=== PATIENT | male | born 1990 | race Caucasian/White ===

== ENCOUNTER 2024-02-19 02:22 | Emergency (ER) | payer OTHER, SELFPAY ==
--- NOTE | ~2024-02-19 | XR_ITS ---
Portable chest x-ray Comparison: 03/26/2018 Clinical History: Chest pain Findings: Minimal interstitial prominence lung bases noted. No pleural effusion or pneumothorax. Ca rdiomediastinal silhouette is stable. Bones and soft tissues are unremarkable. Impression: Mild bibasilar hypoventilatory change versus minimal interstitial edema. Atypical infection possibly less likely. Reviewed, dictated and finalized at location . Impression: Mild bibasilar hypoventilatory change versus minimal interstitial edema. Atypic al infection possibly less likely.
[2024-02-19 02:28] VITALS: BP 163/89; PULSE 120; RESP 17; O2SAT 100
[2024-02-19 02:41] VITALS: O2SAT 100
[2024-02-19 02:51] LABS: Basophils Absolute Auto 0.1 K/mm3 (0.0-0.1); Basophils Percent Auto 0.7 % (0.2-1.2); Eosinophils Absolute Auto 0.2 K/mm3 (0-0.3); Hemoglobin 16.9 g/dL (14.0-18.0); Immature Granulocyte Absolute 0.04 K/mm3 (0.00-0.031); Immature Granulocyte Percent A 0.3 % (0-0.5); Lymphocytes Absolute Auto 2.93 K/mm3 (0.9-3.2); Lymphocytes Percent Auto 25.4 % (18.3-44.2); Mean Corpuscular HGB Conc 33.8 g/dl (32-36); Mean Corpuscular Hemoglobin 29.3 pg (26-34); Mean Corpuscular Volume 86.8 fl (80-100); Mean Platelet Volume 10.1 fl (7.4-10.4); Monocytes Absolute Auto 0.9 K/mm3 (0.1-0.6); Monocytes Percent Auto 8.1 % (2.6-8.5); Neutrophils Absolute Auto 7.3 K/mm3 (1.3-6.7); Neutrophils Percent Auto 63.5 % (45.5-73.1); Platelet Count Result 349 k/mm3 (150-375); Red Blood Count 5.76 M/mm3 (4.6-6.20); Red Cell Distribution Width 12.5 % (11.5-14.5); White Blood Count 11.5 K/mm3 (4.5-10.0)
[2024-02-19 02:55] LABS: Alanine Aminotransferase 55 U/L (6-50); Albumin Level 5.2 g/dL (3.5-5.1); Alkaline Phosphatase 69 U/L (38-126); Anion Gap 10 mmol/L (4-12); Aspartate Amino Transferase 38 U/L (17-59); Bilirubin,Total 0.8 mg/dL (0.2-1.3); Blood Urea Nitrogen 19 mg/dL (9-20); Calcium 9.2 mg/dL (8.4-10.2); Carbon Dioxide 27 mmol/L (22-30); Chloride 101 mmol/L (98-107); Estimated CRCL calculation 134 ml/min; Estimated Glomerular Filt Rate > 60; Glucose 114 mg/dL (65-110); Lipase 93 U/L (23-300); Magnesium 2.2 mg/dL (1.6-2.3); Potassium 3.5 mmol/L (3.4-5.0); Sodium 138 mmol/L (137-145)
[2024-02-19 03:06] LABS: D Dimer 0.47 ug/mL (<0.48)
[2024-02-19] MEDS: SODIUM CHLORIDE 0.9% IV 1,000 ML 999 ML IV CONT (03:06)
[2024-02-19 03:11] VITALS: BP 143/98; PULSE 109; RESP 23; O2SAT 98
[2024-02-19 03:21] LABS: Influenza A QL RT-PCR Negative (Negative); Influenza B QL RT-PCR Negative (Negative); RSV RNA, RT-PCR Negative (Negative); SARS-CoV-2 RNA PCR Negative (Negative)
--- NOTE | 2024-02-19 03:33 | ED.CHESTPAIN ---
HPI - Chest Pain General Chief Complaint: Chest Pain Stated Complaint: chest pain Time Seen by Provider: 02/19/24 02:35 History of Present Illness HPI narrative: Patient is a 33-year-old male who presents to the emergency department this morning complaining of chest pain that has been ongoing for the past few days. Patient states that he was lifting some heavy weights, doing a bench press of 300 lb and ended up having to rest the weight on his chest. Patient states that the weight did not fall in his chest that he slowly lowered to his chest. Patient states that he feels that since then his chest has been bruised and believes that that is the cause for his chest pain but decided to come in today for further evaluation because his father did of a heart attack at age 50. Pain is positional with certain movements, and is not present when patient is resting comfortably. Patient admits that he has not seen a family doctor in a while and has been getting set up with her doctor. Patient also states that he has noticed that his blood pressure has been ranging anywhere from 130-150 systolic which is higher than his usual blood pressure and agrees that he needs to follow up with the primary care physician to have this checked out. Patient states that he has a cruise scheduled 2 weeks from now and wanted to make sure that the chest pain he is having is not from his heart prior to the screws. He denies any additional symptoms including any shortness of, nausea or vomiting. Patient admits to mild epigastric pain but also states that he has a history of acid reflux and is unsure if that is related to his chest pain. He denies fevers or chills at home. No additional symptoms or concerns at this time. Related Data Allergies Allergy/AdvReac Type Severity Reaction Status Date / Time No Known Allergies Allergy Unverified 11/26/18 22:09 Review of Systems Review of Systems: All systems are reviewed and are negative unless stated otherwise in the HPI. Exam Narrative: General: Alert, awake, afebrile, in no acute distress. HEENT: PERRL, no rhinorrhea, no post nasal drip, oropharynx clear. Cardiovascular: Tachycardic with regular rhythm, no murmurs, rubs or gallops, no peripheral edema. Respiratory: Clear to auscultation bilaterally, no tachypnea, no wheezing, no rhonchi, no rubs, no respiratory distress. Abdomen: Soft, nontender, nondistended, no rebound, no guarding, no peritoneal signs. Musculoskeletal: No joint swelling or deformity, normal muscle tone. Skin: No rashes or petechia, no signs of infection. Neurological: Alert and oriented to person, place, and time. Follows all commands. No focal deficits, speech is clear and fluent. Course Vital Signs Vital signs: Vital Signs Pulse Rate 120 H 02/19/24 02:28 Respiratory Rate 17 02/19/24 02:28 Blood Pressure 163/89 H 02/19/24 02:28 Pulse Oximetry 100 02/19/24 02:28 Oxygen Delivery Room Air 02/19/24 02:28 Pulse Rate 109 H 02/19/24 03:11 Respiratory Rate 23 H 02/19/24 03:11 Blood Pressure 143/98 H 02/19/24 03:11 Pulse Oximetry 98 02/19/24 03:11 Oxygen Delivery Room Air 02/19/24 02:41 MDM - Chest Pain MDM Narrative Medical decision making narrative: The patient was evaluated by myself in the emergency department. History is obtained from patient who is an independent historian and physical exam was performed. External medical records were reviewed at this time. IV was established and pertinent tests were ordered. Patient's heart rate was noted to be tachycardic ranging anywhere from 100-120. Patient admits that his resting heart rate is usually around 90 and when he is walking around the hospital it is usually around 110. Patient was administered a 1 L IV fluid bolus with normal saline. EKG was obtained which revealed sinus tachycardia rate of 122 beats per minute. No ST changes, T wave inversions or evidence of acute ischemia. EKG was independ
[2024-02-19 03:38] LABS: Troponin I < 0.012 ng/mL (0.000-0.034)
--- NOTE | 2024-02-19 13:31 | ECG_ITS ---
[facility] [address] Test Date: 2024-02-19 Pat Name: Brian Ziegler Department: Room: Gender: M Molding Manager: : 1990 Requested By: Maria Alejandra Freeman Order Number: [id number] Reading MD: Savita Iqbal M.D. Measurements Intervals [place] Rate: 122 P: 53 MN: 165 QRS: 44 QRSD: 101 T: 38 QT: 326 QTc: 466 Interpretive Statements SINUS TACHYCARDIA NONSPECIFIC ST & T-WAVE ABNORMALITY No previous ECG available for comparison Electronically Signed On 02-19-2024 14:01:50 CDT by Savita Iqbal M.D.
== END 2024-02-19 04:10 | disposition home or self-care (01) ==
PROVIDERS: Emergency Provider Emergency Medicine; PCP Emergency Medicine
DX: R07.89 Other chest pain (principal); Z20.822 Contact with and (suspected) exposure to COVID-19
CPT/HCPCS: 36415; 71045; 80053; 83690; 83735; 84484; 85025; 85380; 87637; 93005; 96360; 99284; J7030

== ENCOUNTER 2024-03-30 12:25 | Emergency (ER) | payer OTHER, SELFPAY ==
[2024-03-30] VITALS (8 sets, daily range): BP systolic 139–170; BP diastolic 88–129; PULSE 91–126; RESP 16–22; TEMP 36.7; O2SAT 18–100
--- NOTE | ~2024-03-30 | XR_ITS ---
Clinical Indication: Chest pain PA and lateral views of the chest: Comparison: 02/19/2024 Findings: Questionable minimal bibasilar interstitial prominence. No consolidation or pleural effusio n. Cardiomediastinal silhouette is within normal limits. Bones and soft tissues are unremarkable. Impression: Questionable minimal bibasilar interstitial prominence, nonspecific. Reviewed, dictated and finalized at location . Impression: Questionable minimal bibasilar interstitial prominence, nonspecific.
--- NOTE | ~2024-03-30 | CT_ITS ---
EXAMINATION: CTA chest PE protocol DATE: 03/30/2024 15:06 INDICATION: Chest pain and shortness of breath TECHNIQUE: Computed tomography (CT) pulmonary angiogram of the chest was performed with 100 mL Omnipa que-350 intravenous contrast. Additional 3D reconstructions utilizing coronal maximum intensity proje ction (MIP) were performed. Automated exposure control and iterative reconstruction technique were em ployed. The dose-length product was 2407.48 mGy-cm. COMPARISON: None FINDINGS: No pulmonary embolism. No pneumonia, pulmonary edema, pleural effusion or pneumothorax. Heart size is normal. No pericardial effusion. Thoracic aorta is normal in caliber with no dissection. No patholog ically enlarged thoracic lymphadenopathy. Diffuse hepatic steatosis. Mild lower thoracic dextrocurvat ure with mild to moderate spondylosis. Chronic mild anterior wedging at T8, T10 and T11. IMPRESSION: 1. No pulmonary embolism or other acute cardiopulmonary disease. 2. Diffuse hepatic steatosis. Reviewed, dictated and finalized at location A.
--- NOTE | 2024-03-30 12:25 | ECG_ITS ---
Test Date: 2024-03-30 12:34:30 Measurements Intervals [place] Rate: 97 P: 30 NM: 130 QRS: 30 QRSD: 106 T: 17 QT: 317 QTc: 404 Interpretive Statements SINUS RHYTHM BASELINE WANDER- V4-V6 NORMAL ECG Compared to ECG 02/19/2024 02:33:26 HEART RATE HAS DECREASED Electronically Signed On 03-30-2024 17:46:12 CDT by Aries Richey D.O.
--- NOTE | 2024-03-30 12:36 | ED.CHESTPAIN ---
HPI - Chest Pain General Chief Complaint: Chest Pain <Latonia Danielle PA-C - Last Filed: 03/30/24 18:20> Stated Complaint: cp <Latonia Danielle PA-C - Last Filed: 03/30/24 18:20> Time Seen by Provider: 03/30/24 12:36 <Latonia Danielle PA-C - Last Filed: 03/30/24 18:20> Focused HPI: This is a 33 year old male that presents to the ER for chest pain. Ongoing since this morning. Reports substernal dull chest pain. Intermittent in nature. Reports recently recovering from COVID. Denies shortness of breath or lower extremity edema. GENERAL: Diaphoretic, well-nourished, and in no acute distress. HEAD: Normocephalic, atraumatic. CHEST: Clear to auscultation. ?No respiratory distress. HEART: Regular rate and rhythm.? NEURO: ?Alert and oriented x3. Patient screened in triage and initial orders placed.? ?Additional care and disposition to be based upon?diagnostic testing and treatment. <Latonia Danielle PA-C - Last Filed: 03/30/24 18:20> History of Present Illness HPI narrative: Patient with recent foreign travel. No hemoptysis. Persistent tachycardia upon arrival. Lysed with HPI. <Riley Chino MD - Last Filed: 03/30/24 16:45> Related Data Allergies/Adverse Reactions: Allergies Allergy/AdvReac Type Severity Reaction Status Date / Time No Known Allergies Allergy Verified 03/30/24 12:32 <Latonia Danielle PA-C - Last Filed: 03/30/24 18:20> Review of Systems Review of Systems: All systems reviewed & are unremarkable except as noted in HPI and below <Riley Chino MD - Last Filed: 03/30/24 16:45> Constitutional: Constitutional: Reports no additional constitutional complaints <Riley Chino MD - Last Filed: 03/30/24 16:45> ENT: Reports system reviewed and no additional complaints, except as documented <Riley Chino MD - Last Filed: 03/30/24 16:45> Cardiovascular: Cardiovascular: Reports chest pain, Denies rapid heart rate and Denies radiating jaw, neck or arm pain <Riley Chino MD - Last Filed: 03/30/24 16:45> Respiratory: Respiratory: Reports no additional respiratory complaints <Riley Chino MD - Last Filed: 03/30/24 16:45> Musculoskeletal: Musculoskeletal: Reports no additional musculoskeletal complaints <Riley Chino MD - Last Filed: 03/30/24 16:45> [facility] Past Medical History Medical History: Medical History (Updated 03/30/24 @ 16:45 by Riley Chino MD) Hypertension <Latonia Danielle PA-C - Last Filed: 03/30/24 18:20> Surgical History Surgical History: Surgical History (Updated 03/30/24 @ 16:43 by Riley Chino MD) No pertinent past surgical history <Latonia Danielle PA-C - Last Filed: 03/30/24 18:20> Exam Narrative: GENERAL: Well-appearing, morbidly obese, and in no acute distress. HEAD: Normocephalic, atraumatic. ENT: Mucous membranes moist. CHEST: Clear to auscultation. No respiratory distress. HEART: Tachycardic and regular. Normal peripheral pulses. EXTREMITIES: Normal range of motion. No edema. SKIN: Warm, dry, no rash. NEURO: Alert and oriented x3. PSYCH: Normal mood and affect. <Riley Chino MD - Last Filed: 03/30/24 16:45> Course Course Emergency Course: Patient resting comfortably. Informed of results. No PE. Troponin negative x2. Is going to establish care with PCP. <Riley Chino MD - Last Filed: 03/30/24 16:45> Vital Signs Vital signs: Vital Signs Temperature 98.1 F 03/30/24 12:27 Pulse Rate 126 H 03/30/24 12:27 Respiratory Rate 22 H 03/30/24 12:27 Blood Pressure 170/129 H 03/30/24 12:27 Pulse Oximetry 98 03/30/24 12:27 Oxygen Delivery Room Air 03/30/24 12:27 Temperature 98.1 F 03/30/24 12:27 Pulse Rate 96 03/30/24 17:14 Respiratory Rate 18 03/30/24 17:14 Blood Pressure 139/98 H 03/30/24 17:14 Pulse Oximetry 96 03/30/24 16:24 Oxygen Delivery Room Air 03/30/24 13:05 <Latonia Danielle PA-C - Last Filed:
[2024-03-30 12:47] LABS: Basophils Absolute Auto 0.1 K/mm3 (0.0-0.1); Basophils Percent Auto 0.9 % (0.2-1.2); Eosinophils Absolute Auto 0.3 K/mm3 (0-0.3); Eosinophils Percent Auto 2.9 % (0-4.4); Hemoglobin 16.6 g/dL (14.0-18.0); Immature Granulocyte Absolute 0.08 K/mm3 (0.00-0.031); Immature Granulocyte Percent A 0.9 % (0-0.5); Lymphocytes Absolute Auto 2.55 K/mm3 (0.9-3.2); Lymphocytes Percent Auto 27.5 % (18.3-44.2); Mean Corpuscular HGB Conc 34.6 g/dl (32-36); Mean Corpuscular Hemoglobin 30.5 pg (26-34); Mean Corpuscular Volume 88.2 fl (80-100); Monocytes Absolute Auto 0.8 K/mm3 (0.1-0.6); Monocytes Percent Auto 8.4 % (2.6-8.5); Neutrophils Absolute Auto 5.5 K/mm3 (1.3-6.7); Neutrophils Percent Auto 59.4 % (45.5-73.1); Platelet Count Result 334 k/mm3 (150-375); Red Blood Count 5.44 M/mm3 (4.6-6.20); Red Cell Distribution Width 12.8 % (11.5-14.5); White Blood Count 9.3 K/mm3 (4.5-10.0)
[2024-03-30 12:56] LABS: Alanine Aminotransferase 81 U/L (6-50); Albumin Level 4.9 g/dL (3.5-5.1); Alkaline Phosphatase 68 U/L (38-126); Anion Gap 12 mmol/L (4-12); Aspartate Amino Transferase 44 U/L (17-59); Bilirubin,Total 0.8 mg/dL (0.2-1.3); Blood Urea Nitrogen 17 mg/dL (9-20); Calcium 8.9 mg/dL (8.4-10.2); Carbon Dioxide 27 mmol/L (22-30); Chloride 99 mmol/L (98-107); Estimated CRCL calculation 146 ml/min; Estimated Glomerular Filt Rate > 60; Glucose 139 mg/dL (65-110); Lipase 71 U/L (23-300); Potassium 3.9 mmol/L (3.4-5.0); Sodium 138 mmol/L (137-145)
[2024-03-30 13:01] LABS: Prothrombin Time 13.7 Seconds (11.1-14.7)
[2024-03-30] MEDS: ASPIRIN 81 MG CHEWABLE TABLET 324 MG PO (13:04)
[2024-03-30 13:07] LABS: Troponin I < 0.012 ng/mL (0.000-0.034)
[2024-03-30 13:15] LABS: D Dimer 0.35 ug/mL (<0.48)
[2024-03-30] MEDS: KETOROLAC 30 MG/ML VIAL (*BKC) IV PUSH (14:47)
[2024-03-30] MEDS: SODIUM CHLORIDE 0.9% IV 1,000 ML 999 ML IV CONT (14:47)
--- NOTE | 2024-03-30 15:57 | ECG_ITS ---
Test Date: 2024-03-30 16:00:13 Measurements Intervals [place] Rate: 97 P: 37 GA: 153 QRS: 30 QRSD: 105 T: 9 QT: 329 QTc: 418 Interpretive Statements SINUS RHYTHM MINIMAL Q WAVES- INFERIOR LEADS BORDERLINE ECG Compared to ECG 03/30/2024 12:34:30 No significant changes Electronically Signed On 03-30-2024 17:47:48 CDT by Aries Richey D.O.
[2024-03-30 16:27] LABS: Troponin I < 0.012 ng/mL (0.000-0.034)
== END 2024-03-30 17:15 | disposition home or self-care (01) ==
PROVIDERS: Emergency Provider Emergency Medicine
DX: R07.89 Other chest pain (principal); I10 Essential (primary) hypertension; Z86.16 Personal history of COVID-19; K76.0 Fatty (change of) liver, not elsewhere classified
CPT/HCPCS: 36415; 71046; 71275; 80053; 83690; 84484; 85025; 85380; 85610; 85730; 93005; 96361; 96374; 99284; A9270; J1885; J7030; Q9967

== ENCOUNTER 2024-05-08 09:47 | Outpatient (CLI) | payer OTHER, SELFPAY ==
[2024-05-08 10:33] LABS: Basophils Absolute Auto 0.1 K/mm3 (0.0-0.1); Basophils Percent Auto 0.6 % (0.2-1.2); Eosinophils Absolute Auto 0.3 K/mm3 (0-0.3); Eosinophils Percent Auto 3.6 % (0-4.4); Hematocrit 46.9 % (42.0-52.0); Hemoglobin 15.5 g/dL (14.0-18.0); Immature Granulocyte Absolute 0.03 K/mm3 (0.00-0.031); Immature Granulocyte Percent A 0.3 % (0-0.5); Lymphocytes Absolute Auto 2.32 K/mm3 (0.9-3.2); Mean Corpuscular Hemoglobin 29.1 pg (26-34); Mean Corpuscular Volume 88.2 fl (80-100); Mean Platelet Volume 10.5 fl (7.4-10.4); Monocytes Absolute Auto 0.9 K/mm3 (0.1-0.6); Monocytes Percent Auto 10.1 % (2.6-8.5); Neutrophils Percent Auto 58.4 % (45.5-73.1); Platelet Count Result 302 k/mm3 (150-375); Red Blood Count 5.32 M/mm3 (4.6-6.20); Red Cell Distribution Width 12.4 % (11.5-14.5); White Blood Count 8.6 K/mm3 (4.5-10.0)
[2024-05-08 10:34] LABS: Hemoglobin A1C 5.7 % (<5.7)
[2024-05-08 10:39] LABS: Alanine Aminotransferase 100 U/L (6-50); Albumin Level 4.5 g/dL (3.5-5.1); Alkaline Phosphatase 64 U/L (38-126); Anion Gap 10 mmol/L (4-12); Aspartate Amino Transferase 51 U/L (17-59); Bilirubin,Total 1.1 mg/dL (0.2-1.3); Blood Urea Nitrogen 16 mg/dL (9-20); Calcium 8.9 mg/dL (8.4-10.2); Carbon Dioxide 28 mmol/L (22-30); Chloride 97 mmol/L (98-107); Cholesterol 185 mg/dL (0-200); Estimated Glomerular Filt Rate > 60; Glucose 107 mg/dL (65-110); HDL Direct 24 mg/dL; Potassium 3.8 mmol/L (3.4-5.0); Sodium 135 mmol/L (137-145); Triglycerides 108 mg/dL (<150)
[2024-05-08 10:50] LABS: LDL Cholesterol Direct 141 mg/dL
[2024-05-08 11:09] LABS: Prostate Specific Antigen 0.8 ng/mL (< OR = 4.0)
[2024-05-12 01:43] LABS: CRP, High Sensitivity 9.3 mg/L
[2024-05-12 20:53] LABS: Testosterone Free 270.5 pg/mL (46.0-224.0)
[2024-05-13 07:34] LABS: Testosterone Total 1018 ng/dL (250-1100)
== END 2024-05-08 09:48 | disposition home or self-care (01) ==
LOC: ANHLAB 09:49
PROVIDERS: PCP Nurse Practitioner Family; Visit Provider Nurse Practitioner Family
DX: Z00.00 Encounter for general adult medical examination without abnormal findings (principal); Z79.890 Hormone replacement therapy; Z76.89 Persons encountering health services in other specified circumstances; K76.0 Fatty (change of) liver, not elsewhere classified; R07.89 Other chest pain; I10 Essential (primary) hypertension; Z68.43 Body mass index [BMI] 50.0-59.9, adult; Z82.49 Family history of ischemic heart disease and other diseases of the circulatory system
CPT/HCPCS: 36415; 80053; 80061; 83036; 84153; 84402; 84403; 85025; 86141

== ENCOUNTER 2024-06-05 07:21 | Outpatient (CLI) | payer OTHER, SELFPAY ==
--- NOTE | ~2024-06-05 | CT_ITS ---
CT of the Abdomen and Pelvis: Indication: Abdominal pain Technique: 2.5 mm axial scans were obtained through the abdomen and pelvis following intravenous adm inistration of 100 cc of Omnipaque 350. Dose reduction technique was used on this scan by utilizing a utomated exposure control and iterative reconstruction technique. The dose-length product (DLP) was 2 093.38 mGy-cm. Findings: Scans through the lung bases are unremarkable. The liver, spleen, pancreas, gallbladder, adrenals and kidneys are within normal limits. No evidence of aortic aneurysm. No lymphadenopathy. No bowel obstruction or bowel wall thickening. There is no evidence to suggest acute appendicitis. Images through the pelvis were performed. Urinary bladder unremarkable. No pelvic mass seen. No ascit es. Impression: No significant abnormalities seen. Reviewed, dictated and finalized at [facility]. Impression: No significant abnormalities seen.
[2024-06-05 07:51] LABS: Estimated Glomerular Filt Rate > 60
== END 2024-06-05 07:22 | disposition home or self-care (01) ==
PROVIDERS: PCP Nurse Practitioner Family; Visit Provider Nurse Practitioner Family
DX: R10.9 Unspecified abdominal pain (principal)
CPT/HCPCS: 74177; Q9967

== ENCOUNTER 2024-07-15 08:24 | Outpatient (CLI) | payer OTHER, SELFPAY ==
--- NOTE | 2024-07-15 08:35 | ECHO_ITS ---
Patient Info Name: Brian Ziegler Age: 34 years : 1990 Gender: Male Ht: 72 in Wt: 360 lbs BSA: 2.96 m2 HR: 65 bpm BP: 159 / 92 mmHg Heart Rhythm: Sinus Rhythm Technical Quality: Poor Exam Date: 07/15/2024 8:50 AM Exam Location: Echo Lab Patient Status: Outpatient Admit Date: 07/15/2024 Staff Ordering Physician: Aries Richey DO Lay Out Maker: Terrance Simms RDCS Attending Provider: Aries Richey DO Referring Physician: Kaiden BESS; Exam Type: CA echo dop color flow w con Study Info Indications - chest pain Complete two-dimensional, color flow and Doppler transthoracic echocardiogram is performed with contrast to opacify the left ventricle and to improve the deliniation of the left ventricle endocardial borders. Reason for Poor Study: poor echocardiographic windows Summary 1. Definity contrast administered improved wall motion interpretation. 2. Left ventricular chamber dimension is normal. 3. Left ventricular systolic function is normal, estimated at 65-70%. 4. There is mild concentric increased left ventricular wall thickness. 5. The left ventricular diastolic function is normal. 6. E/e' 7 is not elevated. 7. No pulmonary hypertension, estimated pulmonary arterial systolic pressure is 9 mmHg. Left Ventricle E/e' 7 is not elevated. Definity contrast administered improved wall motion interpretation. Left ventricular chamber dimension is normal. Left ventricular systolic function is normal, estimated at 65-70%. There is mild concentric increased left ventricular wall thickness. The left ventricular diastolic function is normal. Right Ventricle Right ventricular systolic function is normal and with normal TAPSE 3.1 cm. Right ventricular chamber dimension is normal. Left Atria Left atrial chamber dimension is normal. Right Atria Right atrial chamber dimension is normal. Aortic Valve The aortic valve is trileaflet. There is no aortic valve stenosis. There is no aortic valve regurgitation. Pulmonic Valve There is no pulmonic regurgitation. Mitral Valve There is no mitral valve stenosis. There is no mitral valve regurgitation. Tricuspid Valve There is no tricuspid valve regurgitation. No pulmonary hypertension, estimated pulmonary arterial systolic pressure is 9 mmHg. Pericardium/Pleural There is no pericardial effusion. Inferior Vena Cava Normal inferior vena cava with >50% collapse upon inspiration consistent with normal right atrial pressure, 5 mmHg. Aorta The aortic root size at the sinus of Valsalva is normal. Left Ventricular Outflow Tract Name Value Normal LVOT 2D LVOT Diameter 2.20 cm LVOT Doppler LVOT Peak Gradient 4 mmHg LVOT Mean Gradient 2 mmHg LVOT VTI 19.59 cm LVOT VTI/AV VTI Ratio 1.04 LVOT Stroke Volume 74.14 ml LVOT CO 6.23 l/min LVOT CI 2.10 L/min/m2 Pulmonic Valve Name Value Normal PV Doppler PV Peak Gradient 3 mmHg Mitral Valve Name Value Normal MV Doppler MV Decel Grayson 436.84 cm/s2 MV PHT 0 s MV Area (PHT) 4.34 cm2 4.00-5.00 MV Diastolic Function MV E Peak Velocity 76.31 cm/s MV A Peak Velocity 56.32 cm/s MV E/A 1.35 MV Decel Time 0 s MV Annular TDI MV E/e' (Septal) 8.51 <=8.00 MV E/e' (Lateral) 5.98 <=8.00 MV E/e' (Average) 7.24 Tricuspid Valve Name Value Normal TV Regurgitation Doppler TR Peak Velocity 98.58 cm/s TR Peak Gradient 4 mmHg Estimated PAP/RSVP RA Pressure 5 mmHg <=5 PA Systolic Pressure 9 mmHg <36 RV Systolic Pressure 9 mmHg <36 Aortic Valve Name Value Normal AV Doppler AV Peak Velocity 102.22 cm/s AV Peak Gradient 4 mmHg AV Mean Gradient 2 mmHg AV VTI 18.84 cm AV Area (Cont Eq VTI) 3.94 cm2 >=3.00 AV Area (Cont Eq Steven) 3.58 cm2 AV Regurgitation 2D LVOT Area 3.79 cm2 Ventricles Name Value Normal LV Dimensions 2D/MM IVS Diastolic Thickness (2D) 1.22 cm 0.60-1.00 LVID Diastole (2D) 4.61 cm 4.20-5.80 LVIW Diastolic Thickness (2D) 1.15 cm 0.60-1.00 LVID Systole (2D) 2.89 cm 2.50-4.00 LVOT Diameter 2.20 cm LV Mass (2D Cubed) 202.05 g 88.00-224.00 LV Mass Index (2D Cubed) 0.01 g/cm2 0.00-0.01 Relative Wall Thickness (2D) 0.50 LV Fractional Shortening/Ejection Fraction 2D/MM LV Fractional Shortening (2D) 37 % 25-43 LV EF (2D Teicholz) 67 % 52-72 LV Diastolic Volume (4C MOD) 168.94 ml LV EF (4C MOD) 65 % LV Diastolic Volume (2C MOD) 103.78 ml LV EF (2C MOD) 67 % LV Diastolic Volume (BP MOD) 136.09 ml 62.00-150.00 LV Diastolic Volume Index (BP MOD) 0.05 l/m2 0.03-0.07 LV Systolic Volume (BP MOD) 45.23 ml 21.00-61.00 LV Systolic Volume Index (BP MOD) 0.02 l/m2 0.01-0.03 LV EF (BP MOD) 67 % 52-72 LV Diastolic Length (4C) 9.16 cm LV Systolic Length (4C) 6.69 cm LV Stroke Volume (4C MOD) 110.23 ml Atria Name Value Normal LA Dimensions LA Volume (4C A-L) 38.13 ml LA Volume (BP A-L) 33.71 ml RA Dimensions RA Area (4C) 11.82 cm2 <=18.00 Report Signatures
[2024-07-15] MEDS: PERFLUTREN LIPID MICROSPHERES 1.5 ML VIAL DILUTED TO 10 ML TOTAL VOLUME IV PUSH (09:30)
--- NOTE | 2024-07-15 10:09 | IVDEFINITY ---
Prior to administration of IV Definity the patient was educated on the risks and benefits of the imaging enhancing agent including potential adverse side effects. The patient verbalized understanding. Allergies were verified. No exclusion criteria were identified and at least one of the following inclusion criteria were met: 1) physician request, 2) patient technically difficult to image (per the [place] [employer] guidelines of two or more segments not discernable within the apical view), or 3) questionable left ventricular function. ?
--- NOTE | 2024-07-15 10:30 | EST_ITS ---
Patient Info Name: Brian Ziegler Age: 34 years : 1990 Gender: Male Ht: 72 in Wt: 360 lbs BSA: 2.96 m2 Exam Date: 07/15/2024 10:25 AM Exam Location: Echo Lab Patient Status: Outpatient Admit Date: 07/15/2024 Staff Ordering Physician: Aries Richey DO Attending Provider: Aries Richey DO Exercise Technologist: Manda Spencer RDCS Exercise Physician: Aries Richey DO Exam Type: CA stress test treadmill Study Info Indications R07.9 - Chest pain, unspecified A treadmill exercise stress test was performed. Summary 1. 1. Negative Jesus Alberto exercise stress test for ischemic ST changes by ECG criteria. 2. 2. Good functional capacity, achieving 10 METs of workload. 3. 3. Appropriate HR response to exercise. 4. 4. Appropriate HR recovery at 1 minute post exercise. 5. 5. No imaging with stress testing. 6. 6. Patient informed of the above results. Protocol: Jesus Alberto Stress ECG Details Stage: REST Duration (min): 0 min : 50 sec Speed (mph): 0.0 Grade (%): 0 HR (bpm): 93 SBP (mmHg): 130 DBP (mmHg): 81 METS: --- Stage: REST Duration (min): 9 min : 52 sec Speed (mph): 0.0 Grade (%): 0 HR (bpm): 108 SBP (mmHg): 130 DBP (mmHg): 81 METS: --- Stage: STAGE 1 Duration (min): 1 min : 0 sec Speed (mph): 1.7 Grade (%): 10 HR (bpm): 116 SBP (mmHg): 130 DBP (mmHg): 81 METS: --- Stage: STAGE 1 Duration (min): 2 min : 0 sec Speed (mph): 1.7 Grade (%): 10 HR (bpm): 118 SBP (mmHg): 130 DBP (mmHg): 81 METS: --- Stage: STAGE 1 Duration (min): 3 min : 0 sec Speed (mph): 1.7 Grade (%): 10 HR (bpm): 124 SBP (mmHg): 175 DBP (mmHg): 64 METS: --- Stage: STAGE 2 Duration (min): 1 min : 0 sec Speed (mph): 2.5 Grade (%): 12 HR (bpm): 133 SBP (mmHg): 175 DBP (mmHg): 64 METS: --- Stage: STAGE 2 Duration (min): 2 min : 0 sec Speed (mph): 2.5 Grade (%): 12 HR (bpm): 141 SBP (mmHg): 178 DBP (mmHg): 71 METS: --- Stage: STAGE 2 Duration (min): 3 min : 0 sec Speed (mph): 2.5 Grade (%): 12 HR (bpm): 145 SBP (mmHg): 178 DBP (mmHg): 71 METS: --- Stage: STAGE 3 Duration (min): 1 min : 0 sec Speed (mph): 3.4 Grade (%): 14 HR (bpm): 150 SBP (mmHg): 188 DBP (mmHg): 74 METS: --- Stage: STAGE 3 Duration (min): 2 min : 0 sec Speed (mph): 3.4 Grade (%): 14 HR (bpm): 172 SBP (mmHg): 188 DBP (mmHg): 74 METS: --- Stage: STAGE 3 Duration (min): 2 min : 0 sec Speed (mph): 3.4 Grade (%): 14 HR (bpm): 172 SBP (mmHg): 188 DBP (mmHg): 74 METS: --- Stage: RECOVERY Duration (min): 0 min : 36 sec Speed (mph): 0.0 Grade (%): 0 HR (bpm): 176 SBP (mmHg): 188 DBP (mmHg): 74 METS: --- Stage: RECOVERY Duration (min): 0 min : 59 sec Speed (mph): 0.0 Grade (%): 0 HR (bpm): 165 SBP (mmHg): 178 DBP (mmHg): 77 METS: --- Stage: RECOVERY Duration (min): 1 min : 59 sec Speed (mph): 0.0 Grade (%): 0 HR (bpm): 137 SBP (mmHg): 178 DBP (mmHg): 77 METS: --- Stage: RECOVERY Duration (min): 2 min : 59 sec Speed (mph): 0.0 Grade (%): 0 HR (bpm): 125 SBP (mmHg): 197 DBP (mmHg): 61 METS: --- Stage: RECOVERY Duration (min): 3 min : 59 sec Speed (mph): 0.0 Grade (%): 0 HR (bpm): 119 SBP (mmHg): 197 DBP (mmHg): 61 METS: --- Stage: RECOVERY Duration (min): 4 min : 59 sec Speed (mph): 0.0 Grade (%): 0 HR (bpm): 117 SBP (mmHg): 222 DBP (mmHg): 63 METS: --- Stage: RECOVERY Duration (min): 5 min : 59 sec Speed (mph): 0.0 Grade (%): 0 HR (bpm): 114 SBP (mmHg): 222 DBP (mmHg): 63 METS: --- Stage: RECOVERY Duration (min): 6 min : 59 sec Speed (mph): 0.0 Grade (%): 0 HR (bpm): 114 SBP (mmHg): 222 DBP (mmHg): 63 METS: --- Stage: RECOVERY Duration (min): 7 min : 14 sec Speed (mph): 0.0 Grade (%): 0 HR (bpm): 115 SBP (mmHg): 145 DBP (mmHg): 64 METS: --- Rest HR: 108 bpm Peak HR: 180 bpm Rest Sys BP: 130 mmHg Peak Sys BP: 222 mmHg Max Pred HR: 184 bpm % Max Pred HR: 98 % Target HR: 156 bpm Max RPP: 39,960 bpm*mmHg Cardoza Score: -2 Termination Reason: Reached target heart rate or workload Cardiac Symptoms: Shortness of breath Max ST Seg Deviation: 2.00 mm Total Time: 8 min : 0 sec Rest Romero BP: 81 mmHg Peak Romero BP: 63 mmHg Angina Score: None Total METS: 10.3 Resting ECG Sinus tachycardia. Stress ECG No ST changes. Arrhythmias None. Report Signatures
== END 2024-07-15 08:25 | disposition home or self-care (01) ==
LOC: ANHCARD 08:25
PROVIDERS: PCP Nurse Practitioner Family; Visit Provider Internal Medicine Cardiovascular Disease
DX: R07.9 Chest pain, unspecified (principal)
CPT/HCPCS: 93017; C8929; Q9957

== ENCOUNTER 2025-01-01 11:07 | Outpatient (CLI) | payer OTHER, SELFPAY ==
[2025-01-01 11:47] LABS: Hematocrit 46.2 % (42.0-52.0); Hemoglobin 15.1 g/dL (14.0-18.0); Mean Corpuscular HGB Conc 32.7 g/dl (32-36); Mean Corpuscular Volume 88.7 fl (80-100); Mean Platelet Volume 10.2 fl (7.4-10.4); Platelet Count Result 303 k/mm3 (150-375); Red Blood Count 5.21 M/mm3 (4.6-6.20); Red Cell Distribution Width 12.3 % (11.5-14.5); White Blood Count 8.4 K/mm3 (4.5-10.0)
[2025-01-01 12:31] LABS: Prostate Specific Antigen 0.7 ng/mL (< OR = 4.0)
[2025-01-06 17:14] LABS: Testosterone Free 10 pg/mL (35.0-155.0); Testosterone Total 64 ng/dL (250-1100)
== END 2025-01-01 11:08 | disposition home or self-care (01) ==
LOC: ANHLAB 11:08
PROVIDERS: PCP Nurse Practitioner Family; Visit Provider Nurse Practitioner Family
DX: Z51.81 Encounter for therapeutic drug level monitoring (principal); Z79.890 Hormone replacement therapy
CPT/HCPCS: 36415; 84153; 84402; 84403; 85027

== ENCOUNTER 2025-05-19 06:35 | Outpatient (CLI) | payer OTHER, SELFPAY ==
[2025-05-19 07:57] LABS: Hematocrit 47.1 % (42.0-52.0); Hemoglobin 15.4 g/dL (14.0-18.0); Mean Corpuscular HGB Conc 32.7 g/dl (32-36); Mean Corpuscular Hemoglobin 28.4 pg (26-34); Mean Corpuscular Volume 86.7 fl (80-100); Platelet Count Result 308 k/mm3 (150-375); Red Blood Count 5.43 M/mm3 (4.6-6.20); White Blood Count 10.4 K/mm3 (4.5-10.0)
[2025-05-19 08:02] LABS: Iron 74 ug/dL (49-181)
[2025-05-19 08:12] LABS: Alanine Aminotransferase 63 U/L (6-50); Albumin Level 4.4 g/dL (3.5-5.1); Alkaline Phosphatase 68 U/L (38-126); Anion Gap 9 mmol/L (4-12); Aspartate Amino Transferase 47 U/L (17-59); Bilirubin,Total 0.8 mg/dL (0.2-1.3); Blood Urea Nitrogen 18 mg/dL (9-20); Calcium 9.0 mg/dL (8.4-10.2); Carbon Dioxide 28 mmol/L (22-30); Chloride 98 mmol/L (98-107); Cholesterol 222 mg/dL (0-200); Estimated Glomerular Filt Rate > 60; Glucose 89 mg/dL (65-110); HDL Direct 26 mg/dL; Potassium 3.8 mmol/L (3.4-5.0); Sodium 135 mmol/L (137-145); Total Protein 8.0 g/dL (6.3-8.2); Triglycerides 128 mg/dL (<150)
[2025-05-19 08:13] LABS: Percent Iron Saturation 21 % (20-50)
[2025-05-19 08:25] LABS: Free T4 Free Thyroxine 0.76 ng/dL (0.78-2.19)
[2025-05-19 08:43] LABS: Ferritin 136.00 ng/mL (17.9-464)
[2025-05-19 08:48] LABS: Prostate Specific Antigen 1.0 ng/mL (< OR = 4.0)
[2025-05-20 11:09] LABS: LH <0.3 mIU/mL (1.7-8.6)
[2025-05-20 12:08] LABS: FSH <0.3 mIU/mL (1.5-12.4)
[2025-05-26 01:07] LABS: Testosterone, Total, LC/MS 987 ng/dL (.)
== END 2025-05-19 06:36 | disposition home or self-care (01) ==
PROVIDERS: PCP Nurse Practitioner Family; Visit Provider Nurse Practitioner Family
DX: R79.89 Other specified abnormal findings of blood chemistry (principal); I10 Essential (primary) hypertension; Z82.49 Family history of ischemic heart disease and other diseases of the circulatory system; R73.03 Prediabetes; Z68.43 Body mass index [BMI] 50.0-59.9, adult; K76.0 Fatty (change of) liver, not elsewhere classified; R74.01 Elevation of levels of liver transaminase levels; R10.84 Generalized abdominal pain; Z79.890 Hormone replacement therapy; E78.5 Hyperlipidemia, unspecified; Z13.29 Encounter for screening for other suspected endocrine disorder; E61.1 Iron deficiency
CPT/HCPCS: 36415; 80053; 80061; 82533; 82728; 83001; 83002; 83540; 83550; 84146; 84153; 84403; 84439; 85027

== ENCOUNTER 2025-07-16 07:10 | Outpatient (CLI) | payer OTHER, SELFPAY ==
--- NOTE | ~2025-07-16 | US_ITS ---
US abdomen limited Indication: R74.01 - Elevation of levels of liver transaminase levels Comparison: None Technique: Dubois-scale and color Doppler images were obtained. Findings: LIVER: Liver measures 18.1 cm with mild increased echogenicity of the liver, no liver lesions. . GALLBLADDER/BILIARY: Unremarkable.No cholelithiais, wall thickening or pericholecystic fluid. No biliary dilatation. CBD 6 mm. Keswick sign negative. PANCREAS: Unremarkable. Right Kidney: Right kidney 1206.7 x 5.8 cm, normal. Impression: 1. Moderate hepatic steatosis Reviewed, dictated and finalized at location P. Impression: 1. Moderate hepatic steatosis
== END 2025-07-16 07:11 | disposition home or self-care (01) ==
PROVIDERS: PCP Nurse Practitioner Family; Visit Provider Nurse Practitioner Family
DX: K76.0 Fatty (change of) liver, not elsewhere classified (principal); R74.01 Elevation of levels of liver transaminase levels
CPT/HCPCS: 76705

== ENCOUNTER 2025-08-15 11:08 | Emergency (ER) | payer OTHER, SELFPAY ==
[2025-08-15] VITALS (28 sets, daily range): BP systolic 125–171; BP diastolic 75–131; PULSE 85–135; RESP 14–32; TEMP 36.7; O2SAT 92–100
--- NOTE | ~2025-08-15 | CT_ITS ---
CTA CHEST CLINICAL HISTORY: PE, palpitations . COMPARISON: X-ray and CTA chest 03/30/2024 TECHNIQUE: Helical CTA performed from thoracic inlet to upper abdomen IV contrast information not listed in PACS Coronal, sagittal reformats. Multiplanar MIPS CT images acquired with automatic exposure control for dose reduction DLP: 1139 mGy-cm FINDINGS: Pulmonary arteries: No PE. Thoracic Aorta: No dissection or aneurysm. Heart/pericardium: Upper limit of normal in size. RV/LV ratio: Normal. Lungs/Pleura: Clear. Tracheobronchial tree: Patent. Nodes: No enlarged nodes. Bones: No acute bony abnormality. Soft tissues: Unremarkable. Visualized upper abdomen: Unremarkable. IMPRESSION: 1. No PE or other acute cardiopulmonary findings. Reviewed, dictated and finalized at location R. CULAR TECHNOLOGIST
--- NOTE | 2025-08-15 11:11 | ECG_ITS ---
Test Date: 2025-08-15 11:16:01 Measurements Intervals [place] Rate: 106 P: 44 [place]: 157 QRS: 32 QRSD: 104 T: 6 QT: 319 QTc: 425 Interpretive Statements SINUS TACHYCARDIA Electronically Signed On 08-15-2025 15:27:02 OVERHEAD CRANE TECHNICIAN by Anayeli Landin M.D.
[2025-08-15] MEDS: ASPIRIN 81 MG CHEWABLE TABLET 324 MG PO (11:37)
[2025-08-15 11:42] LABS: Hematocrit 47.1 % (42.0-52.0); Hemoglobin 15.6 g/dL (14.0-18.0); Immature Granulocyte Percent A 0.2 % (0-0.5); Lymphocytes Absolute Auto 1.99 K/mm3 (0.9-3.2); Mean Corpuscular HGB Conc 33.1 g/dl (32-36); Mean Corpuscular Hemoglobin 28.7 pg (26-34); Mean Corpuscular Volume 86.7 fl (80-100); Nucleated Red Blood Cells Absolute Auto 0.000 K/mm3 (0.0-0.012); Nucleated Red Blood Cells Perc 0.0 % (0.0-0.2); Platelet Count Result 266 k/mm3 (150-375); Red Blood Count 5.43 M/mm3 (4.6-6.20); White Blood Count 8.0 K/mm3 (4.5-10.0)
[2025-08-15 11:55] LABS: INR 1.0; Partial Thromboplastin Time 30.0 Seconds (22.3-36.8); Prothrombin Time 13.5 Seconds (11.1-14.7)
[2025-08-15 12:04] LABS: Alanine Aminotransferase 52 U/L (6-50); Albumin Level 4.2 g/dL (3.5-5.1); Alkaline Phosphatase 64 U/L (38-126); Anion Gap 4 mmol/L (4-12); Aspartate Amino Transferase 35 U/L (17-59); Bilirubin,Total 0.9 mg/dL (0.2-1.3); Blood Urea Nitrogen 17 mg/dL (9-20); Calcium 8.6 mg/dL (8.4-10.2); Carbon Dioxide 27 mmol/L (22-30); Chloride 103 mmol/L (98-107); Estimated CRCL calculation 165 ml/min; Estimated Glomerular Filt Rate > 60; Glucose 137 mg/dL (65-110); Lipase 50 U/L (23-300); Potassium 4.2 mmol/L (3.4-5.0); Sodium 134 mmol/L (137-145); Total Protein 7.7 g/dL (6.3-8.2)
[2025-08-15] MEDS: SODIUM CHLORIDE 0.9% IV 1,000 ML 999 ML IV CONT (12:17)
[2025-08-15 12:21] LABS: Troponin I < 0.012 ng/mL (0.000-0.034)
--- NOTE | 2025-08-15 12:25 | PC.NURSE ---
Pt. denies any CP or SOB at this time. Denies feeling any different than his normal.
--- NOTE | 2025-08-15 13:40 | PC.NURSE ---
Pt. continues to deny SOB or CP. Family at bedside. Pt. updated on plan of care.
--- NOTE | 2025-08-15 14:17 | ECG_ITS ---
Test Date: 2025-08-15 14:39:53 Measurements Intervals [place] Rate: 90 P: 40 [place]: 156 QRS: 33 QRSD: 105 T: 16 QT: 333 QTc: 409 Interpretive Statements SINUS RHYTHM Electronically Signed On 08-15-2025 15:27:16 SUPERINTENDENT RADIO COMMUNICATIONS by Anayeli Landin M.D.
--- NOTE | 2025-08-15 14:20 | ED.GENADULT ---
HPI - General Adult General Chief complaint: Chest Pain Stated complaint: cardiac sx Time Seen by Provider: 08/15/25 11:36 History of Present Illness HPI narrative: Patient is a 35-year-old male who presents ER with sudden onset palpitations and pain in left arm. Began was at home helping clean. Lasted up to minute. He felt clammy and lightheaded with palpitations and felt like he had an irregular pulse. No history of arrhythmia. Had a exercise stress test last year that was unremarkable. Family history of a father with MS in his 50s. Sees Dr. Richey. No runny nose or sore throat or productive cough. No pain with deep breath. Related Data Home Medications ?Medication ?Instructions ?Recorded ?Confirmed ?Last Taken ?Type aspirin 81 mg tablet,delayed 81 mg PO DAILY 04/30/24 02/05/25 Unknown History release fluticasone propionate 50 1 spray intranasal DAILY 04/30/24 02/05/25 Unknown History mcg/actuation nasal spray,suspension loratadine 10 mg capsule (Claritin 10 mg PO DAILY 04/30/24 02/05/25 Unknown History Liqui-Gel) multivitamin 1 tablet PO DAILY 04/30/24 02/05/25 Unknown History Allergies Allergy/AdvReac Type Severity Reaction Status Date / Time No Known Allergies Allergy Verified 08/15/25 11:19 Review of Systems Review of Systems: All systems reviewed & are unremarkable except as noted in HPI and below Constitutional: Constitutional: Reports no additional constitutional complaints ENT: Reports system reviewed and no additional complaints, except as documented Cardiovascular: Cardiovascular: Reports no additional cardiovascular complaints Respiratory: Respiratory: Reports no additional respiratory complaints Gastrointestinal: Gastrointestinal: Reports no additional gastrointestinal complaints [facility] Past Medical History Medical History (Updated 08/15/25 @ 14:59 by Riley Chino MD) Encounter to establish care Musculoskeletal chest pain Hypertension Surgical History Surgical History No pertinent past surgical history Family History Family History Father Diabetes mellitus Heart rate problem Social History Social History (Updated 06/11/24 @ 14:15 by Brenda Barker CMA) Smoking status: Never smoker Alcohol intake: unknown Substance use type: does not use Lack of Transportation: No Lack of Food: Never True Current Housing: I Have Housing Concerned About Future Housing: No Difficulty Paying Gas/Electric Bills: No Difficulty Paying for Meds: No Currently Unemployed: No Education: Associate Degree Difficulty w/ Childcare or Family Care: No Exam Narrative: GENERAL: Well-appearing, obese, and in no acute distress. HEAD: Normocephalic, atraumatic. ENT: Mucous membranes moist. NECK: Supple. CHEST: Clear to auscultation. No respiratory distress. HEART: Tachycardic and regular. Normal peripheral pulses. ABDOMEN: Soft, nontender, nondistended. EXTREMITIES: Normal range of motion. No edema. SKIN: Warm, dry, no rash. NEURO: Alert and oriented x3. PSYCH: Normal mood and affect. Course Course Emergency Course: Patient resting comfortably. Pain free here. Troponin negative x2. No arrhythmia here. 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 Recommends follow-up in clinic. Patient verbalized understanding. Vital Signs Vital signs: Vital Signs Temperature 98.0 F 08/15/25 11:11 Pulse Rate 110 H 08/15/25 11:11 Respiratory Rate 20 08/15/25 11:11 Blood Pressure 154/131 H 08/15/25 11:11 Pulse Oximetry 98 08/15/25 11:11 Oxygen Delivery Room Air 08/15/25 11:11 Temperature 98.0 F 08/15/25 11:11 Pulse Rate 85 08/15/25 13:40 Respiratory Rate 14 08/15/25 13:40 Blood Pressure 125/86 08/15/25 13:40 Pulse Oximetry 98 08/15/25 13:40 Oxygen Delivery Room Air 08/15/25 11:19 Medical Decision Making Differential Diagnosis Differential Diagnosis: Arrhythmia non ST-elevation MS, muscle cramps, pneumonia, pulmonary embolism, musculoskeletal chest pain Vital Signs Vital Signs: Vital Signs Temperature 98.0 F 08/15/25 11:11 Pulse Rate 110 H 08/15/25 11:11 Respiratory Rate 20 08/15/25 11:11 Blood Pressure 154/131 H 08/15/25 11:11 Pulse Oximetry 98 08/15/25 11:11 Oxygen Delivery Room Air 08/15/25 11:11 Temperature 98.0 F 08/15/25 11:11 Pulse Rate 85 08/15/25 13:40 Respiratory Rate 14 08/15/25 13:40 Blood Pressure 125/86 08/15/25 13:40 Pulse Oximetry 98 08/15/25 13:40 Oxygen Delivery Room Air 08/15/25 11:19 Lab Data Lab results reviewed: Yes I reviewed the patient's lab results. 08/15/25 11:36 08/15/25 11:36 Labs: Lab Results 08/15/25 08/15/25 Range/Units 11:36 14:17 WBC 8.0 (4.5-10.0) K/mm3 RBC 5.43 (4.6-6.20) M/mm3 Hgb 15.6 (14.0-18.0) g/dL Hct 47.1 (42.0-52.0) % MCV 86.7 (80-100) fl MCH 28.7 (26-34) pg MCHC 33.1 (32-36) g/dl RDW 13.0 (11.5-14.5) % Plt Count 266 (150-375) k/mm3 MPV 9.8 (7.4-10.4) fl Immature Gran % (Auto) 0.2 (0-0.5) % Neut % (Auto) 63.2 (45.5-73.1) % Lymph % (Auto) 24.8 (18.3-44.2) % [place] % (Auto) 7.7 (2.6-8.5) % Eos % (Auto) 3.5 (0-4.4) % Baso % (Auto) 0.6 (0.2-1.2) % Lymph # (Auto) 1.99 (0.9-3.2) K/mm3 [place] # (Auto) 0.6 (0.1-0.6) K/mm3 Eos # (Auto) 0.3 (0-0.3) K/mm3 Baso # (Auto) 0.1 (0.0-0.1) K/mm3 Abs Immat Gran (auto) 0.02 (0.00-0.031) K/mm3 Absolute Neuts (auto) 5.1 (1.3-6.7) K/mm3 Absolute Nucleated RBC 0.000 (0.0-0.012) K/mm3 Nucleated RBC % 0.0 (0.0-0.2) % PT 13.5 (11.1-14.7) Seconds INR 1.0 APTT 30.0 (22.3-36.8) Seconds Sodium 134 L (137-145) mmol/L Potassium 4.2 (3.4-5.0) mmol/L Chloride 103 (98-107) mmol/L Carbon Dioxide 27 (22-30) mmol/L Anion Gap 4 (4-12) mmol/L BUN 17 (9-20) mg/dL Creatinine 0.90 (0.7-1.3) mg/dL Estim Creat Clear Calc 165 ml/min Estimated GFR > 60 (59 - ) Glucose 137 H (65-110) mg/dL Calcium 8.6 (8.4-10.2) mg/dL Total Bilirubin 0.9 (0.2-1.3) mg/dL AST 35 (17-59) U/L ALT 52 H (6-50) U/L Alkaline Phosphatase 64 (38-126) U/L Troponin I < 0.012 < 0.012 (0.000-0.034) ng/mL Total Protein 7.7 (6.3-8.2) g/dL Albumin 4.2 (3.5-5.1) g/dL Lipase 50 (23-300) U/L Imaging Data Radiologist's impression: ITS Impressions Chest CTA 08/15/25 12:47 IMPRESSION: 1. No PE or other acute cardiopulmonary findings. ECG Data EKG #1: ECG completion date: 08/15/25 ECG completion time: 11:16 EKG Interpretation: tachycardia (106), sinus rhythm, non-specific ST changes, normal QRS and NL axis Discharge Plan Discharge Clinical Impression: Chest pain, Heart palpitations Patient Disposition: Home Condition: Stable Instructions: Chest Pain (ED) Additional Instructions: Please return to the emergency department if you develop severe and persistent chest pain, difficulty breathing, dizziness, leg swelling or if you are coughing up blood as these can be signs of a medical emergency. Please call your doctor for a follow up appointment to determine the need for further testing. Patient Language: Japanese Prescriptions: No Action aspirin 81 mg tablet,delayed release (DR/EC) 81 mg PO DAILY fluticasone propionate 50 mcg/actuation spray,suspension 1 spray intranasal DAILY Rx Instructions: administer into each nostril multivitamin Tablet 1 tablet PO DAILY Claritin Liqui-Gel 10 mg capsule 10 mg PO DAILY losartan 25 mg tablet 25 mg PO DAILY Qty: 90 1RF testosterone cypionate 200 mg/mL oil 160 mg IM WEEKLY Qty: 10 0RF Rx Instructions: as a single dose Follow-up/Referrals: Daniella Bland APRN [Primary Care Provider, Internal Medicine] Aries Richey DO [Physician, Cardiology] Quality HEART score for chest pain patients History: slightly suspicious ECG: normal Age: < or = to 45 years Risk factors: > or = to 3 risk factors of atherosclerotic disease Troponin: < or = to 1x normal limit Heart score: 2
[2025-08-15 14:45] LABS: Troponin I < 0.012 ng/mL (0.000-0.034)
== END 2025-08-15 15:17 | disposition home or self-care (01) ==
PROVIDERS: Emergency Medicine; Emergency Provider Emergency Medicine; PCP Nurse Practitioner Family
DX: R07.9 Chest pain, unspecified (principal); R00.2 Palpitations; I10 Essential (primary) hypertension
CPT/HCPCS: 36415; 71275; 80053; 83690; 84484; 85025; 85610; 85730; 93005; 96360; 99284; A9270; J7030; Q9967

== ENCOUNTER 2025-08-21 16:13 | Emergency (ER) | payer OTHER, SELFPAY ==
--- NOTE | ~2025-08-21 | XR_ITS ---
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 Technique: 2 views obtained. Findings: The lungs are clear, no effusion. No pneumothorax. Heart is normal size. Mediastinal and hilar contours are within normal limits. Bony thorax no acute abnormality. Impression: No acute cardiopulmonary abnormality. Reviewed, dictated and finalized at location P. N PIPE MAKER METAL Impression: No acute cardiopulmonary abnormality.
[2025-08-21 16:16] VITALS: BP 153/97; PULSE 127; RESP 15; TEMP 36.8; O2SAT 100
--- NOTE | 2025-08-21 16:16 | ED_ITS ---
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 THE PATIENT AND HIS SIGNIFICANT OTHER REPORT LOT OF STRESS LATELY. Related Data Home Medications ?Medication ?Instructions ?Recorded ?Confirmed ?Last Taken ?Type aspirin 81 mg tablet,delayed 81 mg PO DAILY 04/30/24 0 02/05/25 Unknown History release fluticasone propionate 50 1 spray intranasal DAILY 02/05/25 Unknown History mcg/actuation nasal spray,suspension loratadine 10 mg capsule (Claritin 10 mg PO DAILY 04/1602/05/25 Unknown History Liqui-Gel) multivitamin 1 tablet PO DAILY 04/30/24 0 02/05/25 Unknown History Allergies Allergy/AdvReac Type Severity Reaction Status Date / Time No Known Allergies Allergy Verified 08/15/25 11:19 Review of Systems 2 Review of Systems: All systems reviewed & are unremarkable except as noted in HPI and below PMFSH Past Medical History Medical History Encounter to establish care Musculoskeletal chest pain Hypertension Surgical History Surgical History No pertinent past surgical history Family History Family History Father Diabetes mellitus Heart rate problem Social History Social History Smoking status: Never smoker Alcohol intake: unknown Substance use type: does not use Lack of Transportation: No Lack of Food: Never True Current Housing: I Have Housing Concerned About Future Housing: No Difficulty Paying Gas/Electric Bills: No Difficulty Paying for Meds: No Currently Unemployed: No Education: Associate Degree Difficulty w/ Childcare or Family Care: No Exam 2 Narrative: GENERAL APPEARANCE: WELL-DEVELOPED, WELL-NOURISHED SKIN: NORMAL COLOR HEAD: NORMOCEPHALIC, NONTRAUMATIC EYES: CLEAR CONJUNCTIVA ENT: OROPHARYNX NORMAL, EARS NORMAL, NOSE NORMAL NECK: SUPPLE, NONTENDER CHEST AND RESPIRATORY: AIRWAY PATENT, NO RESPIRATORY DISTRESS, NO ACCESSORY MUSCLE USE HEART: TACHYCARDIA, REGULAR RHYTHM ABDOMEN: SOFT, NONTENDER, NO ORGANOMEGALY, QUIET BOWEL SOUNDS VASCULAR: NORMAL PERIPHERAL PULSES, NORMAL CAPILLARY REFILL. MUSCULOSKELETAL: NORMAL RANGE OF MOTION, NONTENDER BACK NEUROLOGIC: ALERT AND ORIENTED ?3, SLASHER OPERATOR IS NORMAL TESTED, NO GROSS MOTOR DEFICIT Course Consultations Cardiology: Time of Consult: 17:54 I have discussed the care of this patient with the following provider: DR OSBORNE. OUTPATIENT FOLLOW-UP AFTER NEGATIVE 2ND TROPONIN Vital Signs Vital signs: Vital Signs Temperature 36.8 C 08/21/25 16:16 Pulse Rate 127 H 08/21/25 16:16 Respiratory Rate 15 08/21/25 16:16 Blood Pressure 153/97 H 08/21/25 16:16 Pulse Oximetry 100 08/21/25 16:16 Oxygen Delivery Room Air 08/21/25 16:16 Temperature 36.8 C 08/21/25 16:16 Pulse Rate 119 H 08/21/25 17:21 Respiratory Rate 16 08/21/25 17:21 Blood Pressure 146/93 H 08/21/25 17:21 Pulse Oximetry 99 08/21/25 17:21 Oxygen Delivery Room Air 08/21/25 16:28 [facility] Narrative Medical decision making narrative: PATIENT CAME WITH INSOMNIA, PALPITATION, INTERMITTENT CHEST PRESSURE. VITAL SIGNS SHOWING BLOOD PRESSURE 153/97, HEART RATE 127 OTHERWISE WITHIN NORMAL LIMIT PHYSICAL EXAMINATION SHOWING ANXIOUS, RESTLESS PATIENT WITH SINUS TACHYCARDIA DIFFERENTIAL DIAGNOSIS INCLUDE ANXIETY LIKE SYMPTOMS, HYPERTHYROIDISM, PULMONARY EMBOLISM, LESS LIKELY CORONARY ARTERY DISEASE. BLOOD WORKUP TODAY INCLUDES CBC, CMP, TROPONIN, D-DIMER, TSH SHOWED INSIGNIFICANT ABNORMALITY 2nd troponin is negative CHEST X-RAY SHOWED NO ACUTE ABNORMALITY EKG SHOWED SINUS TACHYCARDIA Second EKG showed no significant change compared to the previous EKG Cardiac score is 2 Diagnosis stress, insomnia, atypical chest pain, sinus tachycardia Discharged on clonazepam The pt was discharged to home.the pt,s condition upon discharge was fair,education was provided to the pt in reference to the final impression,discharge study results,treatment,prognosis and need for follow up . Differential Diagnosis Differential Diagnosis: ABOVE Medical Records I have reviewed the following patient records and this information was taken into consideration when formulating the assessment and plan.: previous labs, previous ER visits, previous hospitalizations and previous clinic visits Lab Data MDM Lab Attestation statement: I personally reviewed the patient's lab results. 08/21/25 16:26 08/21/25 16:26 Labs: Lab Results 08/21/25 08/21/25 Range/Units 16:26 19:09 WBC 11.9 H (4.5-10.0) K/mm3 RBC 5.57 (4.6-6.20) M/mm3 Hgb 16.0 (14.0-18.0) g/dL Hct 47.6 (42.0-52.0) % MCV 85.5 (80-100) fl MCH 28.7 (26-34) pg MCHC 33.6 (32-36) g/dl RDW 12.9 (11.5-14.5) % Plt Count 324 (150-375) k/mm3 MPV 9.9 (7.4-10.4) fl Immature Gran % (Auto) 0.4 (0-0.5) % Neut % (Auto) 73.3 H (45.5-73.1) % Lymph % (Auto) 18.4 (18.3-44.2) % [place] % (Auto) 6.0 (2.6-8.5) % Eos % (Auto) 1.4 (0-4.4) % Baso % (Auto) 0.5 (0.2-1.2) % Lymph # (Auto) 2.18 (0.9-3.2) K/mm3 [place] # (Auto) 0.7 H (0.1-0.6) K/mm3 Eos # (Auto) 0.2 (0-0.3) K/mm3 Baso # (Auto) 0.1 (0.0-0.1) K/mm3 Abs Immat Gran (auto) 0.05 H (0.00-0.031) K/mm3 Absolute Neuts (auto) 8.7 H (1.3-6.7) K/mm3 Absolute Nucleated RBC 0.000 (0.0-0.012) K/mm3 Nucleated RBC % 0.0 (0.0-0.2) % PT 13.2 (11.1-14.7) Seconds INR 1.0 APTT 32.5 (22.3-36.8) Seconds D-Dimer 0.42 (<0.48) ug/mL Sodium 137 (137-145) mmol/L Potassium 4.0 (3.4-5.0) mmol/L Chloride 101 (98-107) mmol/L Carbon Dioxide 28 (22-30) mmol/L Anion Gap 8 (4-12) mmol/L BUN 18 (9-20) mg/dL Creatinine 0.96 (0.7-1.3) mg/dL Estim Creat Clear Calc 154 ml/min Estimated GFR > 60 (59 - ) Glucose 154 H (65-110) mg/dL Calcium 9.0 (8.4-10.2) mg/dL Total Bilirubin 0.9 (0.2-1.3) mg/dL AST 36 (17-59) U/L ALT 55 H (6-50) U/L Alkaline Phosphatase 71 (38-126) U/L Troponin I < 0.012 < 0.012 (0.000-0.034) ng/mL Total Protein 8.6 H (6.3-8.2) g/dL Albumin 4.6 (3.5-5.1) g/dL Lipase 74 (23-300) U/L TSH 5.450 H (0.465-4.680) uIU/mL Imaging Data Radiologist's impression: ITS Impressions Chest X-Ray 08/21/25 17:14 Impression: No acute cardiopulmonary abnormality. ECG Data EKG #1: Attestation: I personally reviewed and interpreted this ECG as follows: ECG completion date: 08/21/25 Interpretation: SINUS TACHYCARDIA AT 121 BEATS PER MINUTE, POSSIBLE LATERAL MYOCARDIAL INFARCTION, PROBABLY OLD COMPARED TO EKG ON AUGUST 15, 2025 MYOCARDIAL INFARCTION FINDING NOW PRESENT Critical Care Time Critical Care Time Critical Care Time: No Discharge Plan Discharge Clinical Impression: Sinus tachycardia, Chest pain, Stress Patient Disposition: Home Condition: Stable Instructions: Chest Pain (ED), Heart Palpitations (DC), Stress (ED) Additional Instructions: RETURN IF SYMPTOMS ARE WORSENING , CALL YOUR FAMILY PHYSICIAN FOR APPOINTMENT, TAKE TYLENOL NEEDED FOR ACHES AND PAIN, CONTINUE HOME MEDICATIONS. Patient Language: Divehi Prescriptions: New clonazepam [Klonopin] 0.5 mg tablet 0.5 mg PO BID PRN (Reason: anxiety) Qty: 10 0RF Rx Instructions: administer 30 minutes before bedtime No Action aspirin 81 mg tablet,delayed release (DR/EC) 81 mg PO DAILY fluticasone propionate 50 mcg/actuation spray,suspension 1 spray intranasal DAILY Rx Instructions: administer into each nostril multivitamin Tablet 1 tablet PO DAILY Claritin Liqui-Gel 10 mg capsule 10 mg PO DAILY losartan 25 mg tablet 25 mg PO DAILY Qty: 90 1RF testosterone cypionate 200 mg/mL oil 160 mg IM WEEKLY Qty: 10 0RF Rx Instructions: as a single dose Follow-up/Referrals: Daniella Bland APRN [Primary Care Provider, Internal Medicine] Aries Osborne DO [Physician, Cardiology] - 08/23/25 Stand Alone Forms: Work/School Release IP Quality HEART score for chest pain patients History: slightly suspicious ECG: normal Age: < or = to 45 years Risk factors: > or = to 3 risk factors of atherosclerotic disease Troponin: < or = to 1x normal limit Heart score: 2
--- NOTE | 2025-08-21 16:22 | ECG_ITS ---
Test Date: 2025-08-21 16:27:44 Measurements Intervals [place] Rate: 121 P: 42 NV: 158 QRS: 31 QRSD: 108 T: -2 QT: 308 QTc: 438 Interpretive Statements SINUS TACHYCARDIA MINIMAL Q WAVES- DIFFUSE LEADS ABNORMAL ECG Compared to ECG 08/15/2025 14:39:53 HEART RATE HAS INCREASED Electronically Signed On 08-22-2025 09:10:04 [employer]UCCO PLASTERER by Aries Richey D.O.
[2025-08-21 16:28] VITALS: PULSE 132; O2SAT 100
[2025-08-21 16:39] LABS: Hematocrit 47.6 % (42.0-52.0); Hemoglobin 16.0 g/dL (14.0-18.0); Immature Granulocyte Percent A 0.4 % (0-0.5); Lymphocytes Absolute Auto 2.18 K/mm3 (0.9-3.2); Mean Corpuscular HGB Conc 33.6 g/dl (32-36); Mean Corpuscular Hemoglobin 28.7 pg (26-34); Mean Corpuscular Volume 85.5 fl (80-100); Nucleated Red Blood Cells Absolute Auto 0.000 K/mm3 (0.0-0.012); Nucleated Red Blood Cells Perc 0.0 % (0.0-0.2); Platelet Count Result 324 k/mm3 (150-375); Red Blood Count 5.57 M/mm3 (4.6-6.20); White Blood Count 11.9 K/mm3 (4.5-10.0)
[2025-08-21 16:43] LABS: Alanine Aminotransferase 55 U/L (6-50); Albumin Level 4.6 g/dL (3.5-5.1); Alkaline Phosphatase 71 U/L (38-126); Anion Gap 8 mmol/L (4-12); Aspartate Amino Transferase 36 U/L (17-59); Bilirubin,Total 0.9 mg/dL (0.2-1.3); Blood Urea Nitrogen 18 mg/dL (9-20); Calcium 9.0 mg/dL (8.4-10.2); Carbon Dioxide 28 mmol/L (22-30); Chloride 101 mmol/L (98-107); Estimated CRCL calculation 154 ml/min; Estimated Glomerular Filt Rate > 60; Glucose 154 mg/dL (65-110); Lipase 74 U/L (23-300); Potassium 4.0 mmol/L (3.4-5.0); Sodium 137 mmol/L (137-145); Total Protein 8.6 g/dL (6.3-8.2)
[2025-08-21 16:51] LABS: INR 1.0; Prothrombin Time 13.2 Seconds (11.1-14.7)
[2025-08-21 16:52] LABS: Partial Thromboplastin Time 32.5 Seconds (22.3-36.8)
[2025-08-21 16:53] LABS: Troponin I < 0.012 ng/mL (0.000-0.034)
--- NOTE | 2025-08-21 17:16 | PC.NURSE ---
Per verbal order by EDP Aspirin 324 not given, not need it.
[2025-08-21] MEDS: LORazepam (*CRX) 1 MG TABLET PO (17:20)
[2025-08-21 17:21] VITALS: BP 146/93; PULSE 119; RESP 16; O2SAT 99
[2025-08-21 18:16] LABS: Thyroid Stimulating Hormone 5.450 uIU/mL (0.465-4.680)
--- NOTE | 2025-08-21 18:42 | ECG_ITS ---
Test Date: 2025-08-21 18:46:13 Measurements Intervals [place] Rate: 112 P: 26 ID: [id number] QRS: 29 QRSD: 105 T: -5 QT: 314 QTc: 430 Interpretive Statements SINUS TACHYCARDIA MINIMAL Q WAVES- DIFFUSE LEADS ABNORMAL ECG Compared to ECG 08/21/2025 16:27:44 HEART RATE HAS DECREASED Electronically Signed On 08-22-2025 09:10:33 CIVIL DESIGNER by Aries Richey D.O.
[2025-08-21 19:36] LABS: Troponin I < 0.012 ng/mL (0.000-0.034)
== END 2025-08-21 19:46 | disposition home or self-care (01) ==
PROVIDERS: Emergency Provider Emergency Medicine; PCP Nurse Practitioner Family
DX: R00.0 Tachycardia, unspecified (principal); R07.89 Other chest pain; F43.9 Reaction to severe stress, unspecified; I10 Essential (primary) hypertension
CPT/HCPCS: 36415; 71046; 80053; 83690; 84443; 84484; 85025; 85380; 85610; 85730; 93005; 99284; A9270

== ENCOUNTER 2025-08-25 07:26 | Outpatient (CLI) | payer OTHER, SELFPAY ==
[2025-08-31 12:11] VITALS: BMI 52.9
--- NOTE | 2025-08-31 12:11 | WPDHOMESLEEP ---
Sleep Study - Home Unattended Date of Study: 08/25/25 Ordering Provider: Daniella Bland APRN Interpreting Provider: Paula Forrest, DO Home Sleep Study Type: Watch PAT Height: 1.83 m Weight: 176.901 kg Body Mass Index: 52.9 Neck Circumference (inches): 21 [place]: 5 Reason for Sleep Study Snoring, witnessed apneas, non-restorative sleep Sleep History The patient is a 35-year-old male that had a sleep study ordered by his primary care for evaluation of sleep apnea. The patient rarely awakens from sleep short of breath. He occasionally awakens at night with heartburn, belching or cough. He frequently snores and is frequently loud enough that others complain. He rarely has trouble sleeping when he has a cold. He rarely wakes up gasping for air throughout the night. He frequently has breathing problems at night observed by himself or others. He occasionally sweats excessively at night. He occasionally has heart palpitations or irregular heartbeats during the night. He rarely falls asleep during the day but never while driving. He denies sleep paralysis and cataplexy. He occasionally has trouble at school or work due to sleepiness. He rarely experiences vivid dreamlike scenes upon awakening or falling asleep. He rarely feels afraid of going to sleep. He rarely has nightmares. He occasionally remembers his dreams. He frequently has thoughts racing through his mind. He rarely feels sad or depressed. He occasionally has anxiety. He frequently has muscular tension. He occasionally notices parts of his body jerk. He occasionally kicks during the night. He rarely has crawling and aching feelings in his legs and never has leg pain throughout the night. He rarely grinds his teeth during sleep and rarely awakens with morning jaw pain. He is occasionally bothered by pain during the day but rarely awakened by pain during the night. He frequently wakes up feeling stiff in the morning. He occasionally wakes up with sore or achy muscles. He frequently wakes up with pain in the neck, spine and other joints. He goes to bed at 9:30 a.m. on weekdays. He does not have a set bedtime on the weekend due to his work schedule. It takes him 15-30 minutes to fall asleep. He wakes up 1-3 times throughout the night to urinate and is able to fall back asleep within 5-10 minutes. He wakes up at 5:00 p.m. on weekdays. He does not have a set wake up time on the weekends. He typically gets 6-8 hours of sleep per night. He will stay in bed for 5-10 minutes after waking up in the morning. He currently lives with his fivike. He denies consuming any caffeinated beverages within 2 hours of bedtime. He denies engaging in physical exercise before bedtime. He denies reading before falling asleep. He will watch television before falling asleep. He will take naps in afternoon or the evening and they are refreshing. He consumes 1 caffeinated beverage per day. He denies tobacco, alcohol and recreational drug use. [facility] Past Medical History Medical History Encounter to establish care Musculoskeletal chest pain Hypertension Surgical History Surgical History No pertinent past surgical history Family History Family History Father Diabetes mellitus Heart rate problem Social History Social History Smoking status: Never smoker Alcohol intake: unknown Substance use type: does not use Lack of Transportation: No Lack of Food: Never True Current Housing: I Have Housing Concerned About Future Housing: No Difficulty Paying Gas/Electric Bills: No Difficulty Paying for Meds: No Currently Unemployed: No Education: Associate Degree Difficulty w/ Childcare or Family Care: No Medications Home Medications ?Medication ?Instructions ?Recorded ?Confirmed ?Type aspirin 81 mg tablet,delayed 81 mg PO DAILY 04/30/24 02/05/25 History release fluticasone propionate 50 1 spray intranasal DAILY 04/30/24 02/05/25 History mcg/actuation nasal spray,suspension loratadine 10 mg capsule (Claritin 10 mg PO DAILY 04/30/24 02/05/25 History Liqui-Gel) multivitamin 1 tablet PO DAILY 04/30/24 02/05/25 History losartan 25 mg tablet 25 mg PO DAILY #90 tabs 04/21/25 Rx testosterone cypionate 200 mg/mL 160 mg (0.8 mL) IM WEEKLY #10 mL 06/15/25 Rx intramuscular oil clonazepam 0.5 mg tablet (Klonopin) 0.5 mg PO BID PRN anxiety #10 tabs 08/21/25 Rx Sleep Procedure The sleep study was completed using MeeWeePAT a technically adequate device with seven channels: peripheral arterial tone, actigraphy, body position, snore, respiratory movement, pulse oximetry, sleep staging, and heart rate. Prior to using the device, the patient received verbal and written instructions for its application and was provided with the help desk phone number for additional telephonic instruction with 24-hour availability of qualified personnel to answer questions. The study was scored using CMS guidelines. Sleep Architecture The total recording time is 7 hrs, 43 min. The total sleep time is 6 hrs, 37 min. Sleep latency is 17 minutes. REM latency is 60 minutes. The patient had 6 episodes of waking. Sleep architecture shows 7.9% deep sleep, 72.6% light sleep, and (as % Total Sleep Time) showed NREM (Light 72.6%; Deep 7.9%), and a 19.5% stage REM. The patient spent 58.6% of total sleep time in the supine position. Sleep efficiency was 85.75. Respiratory Analysis The overall AHI (pAHI 4%:) is 78.7. The overall AHI (pAHI 3%:) is 84.8. The central AHI is 0.0. The AHI was 86.0 in NREM and 79.9 in REM sleep. The AHI was 86.9 in Supine and 81.9 in Non-supine sleep. Percent of [place] respirations is 0.0. Oximetry Data The oxygen desaturation index (ZEN 4%:) is 68.2. The mean saturation is 89%, and the lowest saturation is 53%. Time spent with saturation < 88% is 120.2 minutes. Snoring Profile Snoring average intensity is 46 dB. The patient snored above 45 decibels for 197.0 minutes, 49.5% of sleep time. Cardiac Profile The average pulse rate is 82 beats per minutes. The lowest pulse rate is 46 bpm. The highest pulse rate reported is 133 bpm. Atrial fibrillation was not detected. Premature beats occur 0.3 per minute. Assessment and Plan Assessment and Plan (1) ARMANI (obstructive sleep apnea): Code(s): G47.33 - Obstructive sleep apnea (adult) (pediatric) Status: Acute Assessment and Plan: The patient had an overall AHI of 78.7 with desaturation down to 53%. The patient spent 120.2 minutes with an oxygen saturation less than 88%. This is consistent with extremely severe sleep apnea. Due to the severity of the patient's sleep apnea as well as the amount of time he spent hypoxemic, he is not an ideal candidate for AutoPAP. I recommend that the patient had a CPAP titration with the use of a hypnotic to ensure we obtain enough sleep data and find an optimal pressure setting. Data The data obtained during this sleep study is adequate for interpretation. Certification This sleep study has been reviewed by a board certified sleep medicine physician.
== END 2025-08-30 12:26 | disposition home or self-care (01) ==
PROVIDERS: PCP Nurse Practitioner Family; Visit Provider Nurse Practitioner Family
DX: G47.33 Obstructive sleep apnea (adult) (pediatric) (principal); G47.30 Sleep apnea, unspecified
CPT/HCPCS: 95800